=== PATIENT | female | born 1960 | race Caucasian/White ===

== ENCOUNTER 2017-10-07 17:39 | Emergency (ER) | payer BC ==
[~2017-10-07] VITALS: Ht 166.4 cm; Wt 87.1 kg
[2017-10-07 18:02] VITALS: BP 177/86; PULSE 90; RESP 16; TEMP 99; O2SAT 96
--- NOTE | 2017-10-07 19:13 | RADRPT ---
EXAM DATE/TIME: 10/07/2017 18:58 [place] COMPARISON: No previous studies available for comparison. INDICATIONS : Pain post fall. MEDICAL HISTORY : Chipped bone as a child. SURGICAL HISTORY : None. ENCOUNTER: Initial ACUITY: 1 day PAIN SCORE: 10/10 LOCATION: Right Elbow. FINDINGS: Four views of the right elbow demonstrate no fracture or dislocation. No joint effusion is visualized . No soft tissue abnormality or radiopaque foreign body is identified. CONCLUSION: No acute finding is identified. Mati Rubio MD on October 07, 2017 at 19:10 Board Certified Radiologist. This report was verified electronically.
--- NOTE | 2017-10-07 19:30 | PD ---
HPI Chief Complaint: Injury Time Seen by Provider: 18:59 Travel History International Travel<30 days: No Contact w/Intl Traveler<30days: No Traveled to known affect area: No History of Present Illness HPI This is a 57-year-old female here with right elbow pain after she had a mechanical trip and fall onto the elbow prior to arrival. Severity is mild to moderate. Worse with range of motion and relieved with rest. She denies paresthesia or weakness of the extremity. Denies head injury or loss consciousness. Patient is not anticoagulated. Denies any other injuries. PFS Past Medical History Medical History: Denies Significant Hx Diminished Hearing: No Influenza Vaccination: No ?: Not Social History Alcohol Use: No Tobacco Use: Yes Allergies-Medications (Allergen,Severity, Reaction): Coded Allergies: No Known Allergies (Unverified , 10/07/17) Reported Meds & Prescriptions Reported Meds & Active Scripts Active No Active Prescriptions or Reported Medications Review of Systems Except as stated in HPI: all other systems reviewed are Neg Physical Exam Narrative GENERAL: Alert and well-appearing 57 old female SKIN: Warm and dry. Superficial abrasion to the left anterior knee. HEAD: Normocephalic. Atraumatic EYES: . No injection or drainage. NECK: Supple CARDIOVASCULAR: Regular rate and rhythm RESPIRATORY: Breath sounds equal bilaterally. No accessory muscle use. GASTROINTESTINAL: Abdomen soft, non-tender, nondistended. MUSCULOSKELETAL: No cyanosis, or edema. Left knee: Superficial abrasion to the anterior aspect. Joint is stable. Dyspnea to flex and extend the knee without difficulty. Right upper extremity: Mild Tenderness over the proximal forearm and distal humerus. No deformity. Patient is able to flex and extend the elbow without difficulty. Normal range of motion of the shoulder and wrist. 2 plus distal pulses. Normal sensation. Brisk cap refill BACK: Nontender without obvious deformity. No CVA tenderness. Data Data Last Documented VS Vital Signs Date Time Temp Pulse Resp B/P (MAP) Pulse Ox O2 Delivery O2 Flow Rate FiO2 10/07/17 18:02 99.0 90 16 177/86 (116) 96 Orders Orders Elbow, Limited (Ap&Lat) (10/07/17 ) MDM Medical Decision Making Medical Screen Exam Complete: Yes Emergency Medical Condition: Yes Differential Diagnosis Elbow fracture, elbow sprain, elbow contusion Narrative Course 57-year-old female here with contusion to the right elbow. The extremity is neurovascularly intact. X-rays negative for fracture. Patient is given a sling for comfort. Instructed take Tylenol and ibuprofen for pain. Diagnosis Primary Impression: Elbow contusion Qualified Codes: S50.01XA - Contusion of right elbow, initial encounter Referrals: Primary Care Physician Additional Instructions: Sling for comfort. Tylenol or ibuprofen for pain. Ice and elevate the extremity. Follow-up with her primary doctor. Scripts No Active Prescriptions or Reported Meds Disposition: 01 DISCHARGE HOME Condition: Stable Debbie Pino Oct 07, 2017 19:30
== END 2017-10-07 19:41 | disposition home or self-care (01) ==
LOC: PHEFT 17:39
DX: S50.01XA Contusion of right elbow, initial encounter (principal); W01.0XXA Fall on same level from slipping, tripping and stumbling without subsequent striking against object, initial encounter; Z72.0 Tobacco use
CPT/HCPCS: 73070; 99283